=== PATIENT | male | born 1945 | race Caucasian/White ===

== ENCOUNTER → 2021-05-04 14:05 | Outpatient (CLI) | payer OTHER, SELFPAY ==
--- NOTE | 2021-05-04 | DI.ECHO.S_ITS ---
[facility] +---------+ : : [address] : [place] : : : : [id number] : : : : Phone: [phone]+ Echocardiogram Report + + :Name: MARKO SALAZAR Study Date: 05/04/2021 Height: 66 in : :[facility] ReadingLocation: Weight: 155 lb : : Gender: Male BSA: 1.8 m2 : :: 1945 Age: 75 yrs BP: 157/90 mmHg: :Reason For Study: ENCOUNTER FOR GENERAL ADULT MEDICAL : :EXAMINATION : :Ordering Physician: MARISEL, : :DONITA Performed By: Livia Hickman : :Referring: DONITA JOINER : + + Interpretation Summary Normal sinus rhythm. Normal LV size and wall thickness. Mild global hypokinesis. EF is estimated at 45-50%. Normal chamber sizes. No significant valvular abnormalities. Estimated PA systolic pressure is 25 mm Hg assuming RA pressure of 3 mm Hg. No prior study available for comparison. Procedure: A two-dimensional transthoracic echocardiogram with color flow and Doppler was performed. The study quality was technically adequate. Most of the acoustic windows were suboptimal, but the best imaging was obtained from the subcostal window. The patient was in sinus rhythm with heart rates between 60-80 bpm during the exam. Left Ventricle: The left ventricle is normal in size and wall thickness. The ejection fraction is estimated to be 45-50%. Right Ventricle: The right ventricle is normal in size and function. Atria: The left atrial size is normal. Right atrial size is normal. There is no Doppler evidence for an interatrial shunt. Mitral Valve: The mitral valve leaflets appear mildly thickened, but open well. There is mild mitral regurgitation. Aortic Valve: The aortic valve is trileaflet. The aortic valve opens well. There is no aortic valve stenosis. No aortic regurgitation is present. Tricuspid Valve: The tricuspid valve is normal in structure and function. There is mild tricuspid regurgitation. The right ventricular systolic pressure is estimated to be at least 25 mmHg based on an estimated right atrial pressure of 3 mm Hg. Pulmonic Valve: The pulmonic valve leaflets are thin and pliable; valve motion is normal. There is no pulmonic valvular regurgitation. Great Vessels: The aortic root is normal size. The dimensions of the ascending aorta are normal. The IVC is of normal diameter and collapses greater than 50% with a sniff. This suggests a low right atrial pressure of 3 mm Hg. Pericardium/ Pleura There is no pericardial effusion. There is no pleural effusion. MMode/2D Measurements & Calculations LVIDd: 4.6 cm LVOT diam: 2.2 cm LVIDs: 3.9 cm Ao root diam: 3.1 cm FS: 15.5 % Ao Arch Diam (Prox Trans): 2.5 cm IVSd: 0.99 cm LVPWd: 1.0 cm LV soto. diameter/BSA (cm/m^2): 2.6 LV sys. diameter/BSA (cm/m^2): 2.2 LA A2 area: 16.7 cm2 RA long axis: 4.5 cm LA A4 area: 14.4 cm2 RA area: 12.4 cm2 LA length (vol): 4.3 cm RA vol: 29.3 ml LA vol: 48.1 ml RA : 16.3 ml/m2 LA vol index: 26.8 ml/m2 IVC diam: 1.1 cm RVD1 (basal): 2.9 cm TAPSE: 2.0 cm Doppler Measurements & Calculations Ao V2 max: 76.4 cm/sec LVOT Max Italo: 60.2 cm/sec Ao V2 mean: 55.7 cm/sec LV V1 max P.4 mmHg Ao max P.3 mmHg LV V1 VTI: 14.0 cm Ao mean P.4 mmHg ERIKA(I,D): 2.6 cm2 Ao V2 VTI: 20.8 cm ERIKA(V,D): 3.0 cm2 sev ratio: 0.67 ERIKA indexed to BSA (cm^2/m^2): 1.5 MV E max italo: 70.4 cm/sec TR max italo: 233.4 cm/sec MV A max italo: 93.9 cm/sec TR max P.8 mmHg MV E/A: 0.75 PA V2 max: 77.8 cm/sec Med Peak E' Italo: 4.8 cm/sec PA V2 mean: 55.4 cm/sec E/E' med: 14.5 PA mean P.4 mmHg Lat Peak E' Italo: 8.1 cm/sec PA pr(Accel): 53.3 mmHg E/E' lat: 8.6 E/e' average: 11.6 MV dec time: 0.16 sec SV(LVOT): 54.2 ml Electronically signed by: Lina Mays M.D. on Reading Physician:05/05/2021 12:45 AM
== END ==
PROVIDERS: Referring Provider Orthopaedic Surgery; Visit Provider Orthopaedic Surgery
DX: I08.1 Rheumatic disorders of both mitral and tricuspid valves (principal)
CPT/HCPCS: 93306